=== PATIENT | male | born 1990 | race Caucasian/White ===

== ENCOUNTER → 2024-02-18 | Outpatient (CLI) | payer BC ==
--- NOTE | 2024-02-18 13:19 | CA ---
Exercise Stress Test Report Name: Hossein Obando Exam Date: 02/18/2024 10:38 Exam Location: [facility] Ht (in): 71 Wt (lb): 235 BSA: 2.26 Ordering Phys: Ronald Bennett MD Referring Phys: Zechariah Silva Technologist: Yoanna Vincent RDCS Age: 33 Gender: M : 1990 Procedure CPT: Indications: r53.83 Other Fatigue ICD-10 Codes: Patient History: Medications: NONE Meds past 24 hrs: Pretest Chest Pain: STRESS TEST Jair Protocol Exercise Duration (min:sec): 12:[address] Depressions (mm): 0 Angina Score: 0 Carney Score: 12.7 Resting HR (bpm): 58 Peak HR (bpm): 159 Resting BP (mmHg): 138 / 77 Peak BP (mmHg): 236 / 84 MPHR: 185 Target HR: 157 % MPHR: 86 METS: 13.3 Total Dose: Peak Dose: Atropine: Double Product: 59898 BP Response: Stress Termination: Reached target heart rate Stress Symptoms: No chest pain or symptoms Stress Summary: The patient's target heart rate was achieved ECG ANALYSIS Resting ECG: Sinus rhythm. Normal conduction. No arrhythmias. Normal repolarization. Stress ECG: No ECG evidence of ischemia with exercise. CONCLUSIONS Patient falls into low-risk group (DTS >= +5). This associates the patient with an annual CV mortality <= 0.5%. 1. Good exercise tolerance 2. Normal electrocardiographic stress test with no evidence of stress induced ischemia. Dr. Cecilia Dubose MD (Electronically Signed) Final Date: 18 February 2024 13:18
== END | disposition home or self-care (01) ==
LOC: RADNMMAIN 10:15
PROVIDERS: ATTEND Family Medicine
DX: R53.83 Other fatigue (principal)
CPT/HCPCS: 93017